=== PATIENT | male | born 1975 | race Caucasian/White ===

== ENCOUNTER 2017-03-13 20:33 | Emergency (ER) | payer BC, OTHER ==
[~2017-03-13] VITALS: Ht 185.4 cm; Wt 97.7 kg
[2017-03-13 20:37] VITALS: BP 160/91; PULSE 109; TEMP 36.8; O2SAT 96; Ht 185.4 cm; Wt 97.7 kg
[2017-03-13] MEDS ORDERED: OXYCODONE HCL IR 5 MG TAB (IMMEDIATE RELEASE) PO STA (20:50)
[2017-03-13] MEDS ORDERED: OXYCODONE IR HOME PACK PO ONE (21:00)
--- NOTE | 2017-03-13 21:10 | DIAGNOSTIC IMAGING REPORT ---
LEFT ANKLE MIN 3 VIEWS ROUTINE CLINICAL HISTORY: L ankle/heel pain - Achilles tendon rupture COMPARISON: None. DISCUSSION: The bones and joint spaces appear intact. There is no evidence of fracture, dislocation or bony disease. Soft tissue posterior to the ankle. Subtalar joint is intact. IMPRESSION: Posterior soft tissue edema. No acute bony abnormality. Electronically signed by: Ishaan Berkowitz M.D. 03/13/2017 9:08 PM Dictated Date/Time: 03/13/2017 9:07 PM
[2017-03-13] MEDS ORDERED: OXYC1TAB3 PO (21:41)
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
[2017-03-16] MEDS ORDERED: OXYC1TAB3 PO (09:50)
[2017-03-17] MEDS ORDERED: ASPEC325 PO (14:28)
== END 2017-03-13 21:47 | disposition home or self-care (01) ==
LOC: C.EDB 20:35 → C.EDD 21:47
DX: S86.012A Strain of left Achilles tendon, initial encounter (principal); X58.XXXA Exposure to other specified factors, initial encounter; Y93.6A Activity, physical games generally associated with school recess, summer camp and children; I10 Essential (primary) hypertension; F17.200 Nicotine dependence, unspecified, uncomplicated; Z87.820 Personal history of traumatic brain injury

== ENCOUNTER → 2017-03-17 | Day surgery (SDC) | payer OTHER ==
[2017-03-16 09:50] VITALS: Ht 185.4 cm; Wt 111.4 kg
[~2017-03-17] VITALS: Ht 185.4 cm; Wt 111.4 kg
[~2017-03-17] MED LIST: ASPEC325 PO; ATROPINE SULFATE 0.1 MG/ML 5ML SYR IV PRN; CEFAZOLIN 2000 MG/60 ML D5W IV SCH; CEFAZOLIN SOD 1 GM VIAL ONE; CEFAZOLIN SOD 1000MG/55 ML D5W IV ONE; DEXAMETHASONE SOD INJ 4 MG/ML VIAL ONE; EpHEDrine SULFATE INJ 50 MG/ML AMP IV PRN; FENTANYL CITRATE INJ 50 MCG/1 ML 2 ML VIAL ONE; HYDROmorphone INJ 2 MG/ML SYR/VIAL IV PRN; LACTATED RINGER'S 1000ML 1,000 ML IV SCH; LIDOCAINE HCL 1% MPF 2 ML VIAL ONE; LIDOCAINE HCL 2% 2 ML VIAL (20MG/ML) ONE; MIDAZOLAM HCL 1 MG/ML 2ML VIAL ONE; ONDANSETRON INJ 2 MG/ML 2 ML VIAL IV PRN; ONDANSETRON INJ 2 MG/ML 2 ML VIAL ONE; OXYC1TAB3 PO; OXYCODONE/ACETAMINOPHEN 5-325 TAB PO PRN; PHENYLEPHRINE 100MCG/ML 5ML SYR IV PRN; PROPOFOL IV EMULSION 10 MG/ML 20 ML VIAL IV ONE; ROPIVACAINE 0.5% 5 MG/ML 30 ML VIAL ONE; ROPIVACAINE/NSS 0.2% 250 ML PUMP INFIL PRN; SODIUM CHLORIDE 0.9% 1000ML 1,000 ML IV PRN; SODIUM CHLORIDE 0.9% 1000ML 1,000 ML IV SCH
--- NOTE | 2017-03-17 12:01 | History & Physical Bridge - SC ---
H&P Re-Evaluation Bridge Note: I have examined the patient, reviewed the History & Physical and in the interval since the performance of the History & Physical I have noted the following changes of clinical significance: No changes noted
[2017-03-17] MEDS: BUPIVACAINE/EPINEPHRINE 0.5% MPF 1:200,000 30 ML VIAL ONE ×2 (13:58→14:01)
--- NOTE | 2017-03-17 14:30 | Discharge Instructions-SurgCtr ---
Discharge Instructions Date of Service March 17, 2017. Visit Reason for Visit: Left Achilles Teondon Rupture Discharge Discharge Diagnosis / Problem: left achilles tendon rupture Discharge Goals Goal(s): Improve function, Therapeutic intervention Activity Recommendations Activity Limitations: per Instructions/Follow-up section Weightbearing Status: Left non-weightbearing Anesthesia . Post Anesthesia Instructions: If you have had General Anesthesia or IV Sedation: * Do not drive today. * Resume driving when surgeon permits. * Do not make important decisions or sign legal documents today. * Call surgeon for: 1. Temperature elevations greater than 101 degrees F. 2. Uncontrollable pain. 3. Excessive bleeding. 4. Persistent nausea and vomiting. 5. Medication intolerance (nausea, vomiting or rash). * For nausea and vomiting use only clear liquids such as: tea, soda, bouillon until nausea subsides, then gradually increase diet as tolerated. * If you have any concerns or questions, call your surgeon's office. If physician is unavailable and it is an emergency, call 911 or go to the nearest emergency room. . Instructions / Follow-Up Instructions / Follow-Up MEDICATIONS: * Resume previous medications unless instructed otherwise by your surgeon. * Always take pain medication on a full stomach or with food to avoid upset stomach. * Do not drink alcohol or drive while taking narcotics. * Ibuprofen or Tylenol may be taken if narcotic not needed. SPECIAL CARE INSTRUCTIONS: __ None _x_ Keep extremity elevated as much as possible _x_ Crutches __ May discard when able __ Brace/Post-op shoe __ 24 hrs/day __ Remove at night _x_ Dressing _x_ Maintain until seen in office, may shower with plastic over site __ Remove dressings in 24-48 hours and then may shower __ Cover incisions with band-aids after showering __ Do not remove steri-strips Call physician if chills or temperature rises above 102 degrees or pain unrelieved by prescribed pain medications. Office [phone] follow up in 2 weeks Diet Recommendations Home Diet: resume previous diet Procedures Procedures Performed: Left Achilles Tendon Repair Pending Studies Studies pending at discharge: no Medical Emergencies . Who to Call and When: Medical Emergencies: If at any time you feel your situation is an emergency, please call 911 immediately. . Non-Emergent Contact Non-Emergency issues call your: Surgeon . . "Provider Documentation" section prepared by Ty Denson. .
--- NOTE | 2017-03-17 14:31 | [facility] Post Operative Brief Note ---
Immediate Operative Summary Operative Date March 17, 2017. Pre-Operative Diagnosis Left Achilles Tendon Rupture Post-Operative Diagnosis same Procedure(s) Performed Left Achilles Tendon Repair Surgeon Dr. Bianca Palafox Mercury Recoverer Surgeon(s) Mark Denson PA-C Estimated Blood Loss 5cc Findings Left Achilles Tendon Rupture Specimens none Anesthesia General Complication(s) None Disposition Recovery Room / PACU
--- NOTE | 2017-03-17 15:23 | OPERATIVE REPORT ---
DATE OF OPERATION: 03/17/2017 SURGEON: Ramez Palafox MD FENCE ERECTOR SUPERVISOR: EFRAÍN Gamboa PREOPERATIVE DIAGNOSIS: Left Achilles tendon rupture. POSTOPERATIVE DIAGNOSIS: Same. PROCEDURE PERFORMED: Left Achilles tendon repair. COMPLICATIONS: None. ESTIMATED BLOOD LOSS: 5 mL. TOURNIQUET TIME: 24 minutes at 300 mmHg. ANESTHESIA: General. SPECIMENS: None. 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 He was playing kickball and got out from a crouched position and took off and felt a pop in his leg. He was seen in the Emergency Room as well as clinic and diagnosed with Achilles tendon rupture. He elected to proceed with surgical treatment. OPERATIVE PROCEDURE: The patient was taken to the operating room, identified and placed on the operating table in the supine position. All contact areas were appropriately padded. IV antibiotics were provided by the anesthesia team. A general anesthetic was implemented by anesthesia team. The patient was then placed prone on the operating room table. A left thigh tourniquet was then placed. The left foot and ankle were then prepped and draped in the usual sterile fashion. Left leg was elevated and exsanguinated with Esmarch and tourniquet was placed at 300 mmHg. A medial approach to the Achilles tendon was then performed using a longitudinal incision over the medial border of the patellar tendon. Sharp dissection was carried out through the subcutaneous tissue down to the level of the paratenon/fascia. I then incised the paratenon. The rupture was easily visualized. We very carefully elevated the flaps to identify the tendon. I then trimmed up some of the loose edges. I then placed a #5 Ti-Cron suture in the proximal portion of the tendon using a modified Fred fashion. We placed a similar stitch in the distal tendon as well. We then tied the suture with the foot in slight plantar flexion at about 30 degrees. This provided excellent approximation of the tendon. The wound was then irrigated extensively. I did inject locally with 20 mL of 0.5% Marcaine with epinephrine. The paratenon was then closed with 2-0 Vicryl suture in a [id number] fashion. The tourniquet was then let down for a tourniquet time of 24 minutes. Hemostasis was assured with use of electrocautery. The wound was once again irrigated. Subcutaneous tissues were then closed with 3-0 Vicryl suture in a buried interrupted fashion. Skin was closed with 3-0 nylon suture in a simple fashion. The leg was then cleaned and dried and a sterile dressing of Xeroform, 4 x 4's, sterile cast padding and a stirrup splint with the foot in 30 degrees of plantar flexion were applied. The patient was then placed back in the supine position. He was brought out of general anesthesia and transferred to the recovery room in stable condition. The patient tolerated the procedure well with no complications. All needle and sponge counts were correct at the end of the operation. I attest to the content of the Intraoperative Record and any orders documented therein. Any exceptio ns are noted below.
[2017-03-17 15:46] VITALS: BP 130/81; PULSE 77; TEMP 36.4; O2SAT 99
--- NOTE | 2017-03-17 15:53 | Anesthesia Progress Nt - [facility] ---
Anesthesia Post Op Note Date & Time March 17, 2017 at 15:53 Vital Signs Pain Intensity: 0 Vital Signs Past 12 Hours Date Time Temp Pulse Resp B/P Pulse Ox O2 Delivery O2 Flow Rate FiO2 03/17/17 15:46 36.4 77 16 130/81 99 Room Air 03/17/17 15:26 36.2 83 16 131/88 99 Room Air 03/17/17 15:11 84 10 133/97 99 03/17/17 15:11 85 10 03/17/17 15:10 36.7 103 16 122/96 97 03/17/17 15:06 90 5 03/17/17 15:06 88 5 142/95 98 03/17/17 15:01 92 11 128/93 96 03/17/17 15:01 93 11 03/17/17 14:57 138/89 03/17/17 14:56 94 12 03/17/17 14:56 95 12 153/113 98 03/17/17 14:51 94 12 157/104 99 03/17/17 14:51 94 12 03/17/17 14:46 97 12 03/17/17 14:46 98 12 155/69 99 03/17/17 14:41 97 10 03/17/17 14:41 98 10 139/89 97 03/17/17 14:36 98 18 03/17/17 14:36 98 18 138/87 99 03/17/17 14:35 122/96 03/17/17 14:33 36.7 103 16 122/96 97 Mask 03/17/17 13:21 0 03/17/17 13:20 0 03/17/17 13:16 116/70 03/17/17 13:15 86 03/17/17 13:15 85 18 98 03/17/17 13:11 111/75 03/17/17 13:10 88 03/17/17 13:10 90 21 99 03/17/17 13:06 92/65 03/17/17 13:05 81 03/17/17 13:05 79 10 134/94 100 03/17/17 13:03 146/98 03/17/17 13:00 71 0 97 03/17/17 13:00 71 03/17/17 12:55 81 0 98 03/17/17 12:55 81 03/17/17 12:50 79 03/17/17 12:50 79 0 96 03/17/17 12:45 80 03/17/17 12:45 80 0 96 03/17/17 12:40 79 0 95 03/17/17 12:40 80 03/17/17 12:35 85 03/17/17 12:35 85 0 97 03/17/17 12:03 36.6 94 16 137/92 96 Room Air Notes Mental Status: alert / awake / arousable, participated in evaluation Pt Amnestic to Procedure: Yes Nausea / Vomiting: adequately controlled Pain: adequately controlled Airway Patency, RR, SpO2: stable & adequate BP & HR: stable & adequate Hydration State: stable & adequate Anesthetic Complications: no major complications apparent
== END | disposition home or self-care (01) ==
LOC: X.SURG 11:54
PROVIDERS: ATTEND Orthopaedic Surgery Sports Medicine
DX: S86.012A Strain of left Achilles tendon, initial encounter (principal); X58.XXXA Exposure to other specified factors, initial encounter; Y93.6A Activity, physical games generally associated with school recess, summer camp and children

== ENCOUNTER → 2017-04-16 | Outpatient (CLI) | payer OTHER ==
[~2017-04-16] MED LIST changes: -ATROPINE SULFATE 0.1 MG/ML 5ML SYR IV PRN; -CEFAZOLIN 2000 MG/60 ML D5W IV SCH; -CEFAZOLIN SOD 1 GM VIAL ONE; -CEFAZOLIN SOD 1000MG/55 ML D5W IV ONE; -DEXAMETHASONE SOD INJ 4 MG/ML VIAL ONE; -EpHEDrine SULFATE INJ 50 MG/ML AMP IV PRN; -FENTANYL CITRATE INJ 50 MCG/1 ML 2 ML VIAL ONE; -HYDROmorphone INJ 2 MG/ML SYR/VIAL IV PRN; -LACTATED RINGER'S 1000ML 1,000 ML IV SCH; -LIDOCAINE HCL 1% MPF 2 ML VIAL ONE; -LIDOCAINE HCL 2% 2 ML VIAL (20MG/ML) ONE; -MIDAZOLAM HCL 1 MG/ML 2ML VIAL ONE; -ONDANSETRON INJ 2 MG/ML 2 ML VIAL IV PRN; -ONDANSETRON INJ 2 MG/ML 2 ML VIAL ONE; -OXYCODONE/ACETAMINOPHEN 5-325 TAB PO PRN; -PHENYLEPHRINE 100MCG/ML 5ML SYR IV PRN; -PROPOFOL IV EMULSION 10 MG/ML 20 ML VIAL IV ONE; -ROPIVACAINE 0.5% 5 MG/ML 30 ML VIAL ONE; -ROPIVACAINE/NSS 0.2% 250 ML PUMP INFIL PRN; -SODIUM CHLORIDE 0.9% 1000ML 1,000 ML IV PRN; -SODIUM CHLORIDE 0.9% 1000ML 1,000 ML IV SCH
[2017-04-16 11:01] LABS: BASO % 0.3 %; BASO ABS # 0.03 K/uL (0-0.2); COMPLETE YES; EOS % 2.9 %; HEMATOCRIT 43.6 % (42-52); IG% 0.3 %; LYMPH % 12.8 %; MEAN CELL VOLUME 88.4 fL (80-100); MEAN CORPUSCULAR HGB CONC 33.9 g/dl (32-36); MEAN PLATELET VOLUME 10.3 fL (7.4-10.4); NEUT % 76.7 %; PLATELET COUNT 439 K/uL (130-400); RED BLOOD COUNT 4.93 M/uL (4.7-6.1); WHITE BLOOD COUNT 10.93 K/uL (4.8-10.8)
[2017-04-16 11:19] LABS: CALCIUM 9.7 mg/dl (8.5-10.1)
[2017-04-16 11:23] LABS: ALT/SGPT 25 U/L (12-78); AST/SGOT 11 U/L (15-37); BLOOD UREA NITROGEN 16 mg/dl (7-18); BUN/CREATININE RATIO 15.9 (10-20); CARBON DIOXIDE 29 mmol/L (21-32); CHLORIDE 105 mmol/L (98-107); GLUCOSE 102 mg/dl (70-99); POTASSIUM 4.1 mmol/L (3.5-5.1); SODIUM 140 mmol/L (136-145)
[2017-04-16 11:26] LABS: ALKALINE PHOSPHATASE 71 U/L (45-117); CHOLESTEROL 166 mg/dl (0-200); CHOLESTEROL/HDL RATIO 4.5; HDL CHOLESTEROL 37 mg/dl; LDL CHOLESTEROL CALCULATED 103 mg/dl; TRIGLYCERIDES 128 mg/dl (0-150); VERY LOW DENSITY LIPOPROT CALC 26 mg/dl
[2017-04-16 12:32] LABS: LYME DISEASE AB IGG NEG (NEG); LYME DISEASE AB IGM NEG (NEG)
== END ==
LOC: C.LABBC 08:18
PROVIDERS: ATTEND Nurse Practitioner
DX: E66.9 Obesity, unspecified (principal); Z13.220 Encounter for screening for lipoid disorders

== ENCOUNTER → 2017-05-25 | Outpatient (CLI) | payer OTHER ==
[2017-05-25 10:57] LABS: BASO % 0.6 %; BASO ABS # 0.03 K/uL (0-0.2); COMPLETE YES; HEMATOCRIT 43.3 % (42-52); IG% 0.6 %; LYMPH ABS # 1.14 K/uL (1.2-3.4); MEAN CELL VOLUME 88.4 fL (80-100); MEAN CORPUSCULAR HEMOGLOBIN 29.2 pg (25-34); MEAN PLATELET VOLUME 10.1 fL (7.4-10.4); MONO % 9.4 %; NEUT % 59.4 %; PLATELET COUNT 260 K/uL (130-400); WHITE BLOOD COUNT 5.42 K/uL (4.8-10.8)
== END | disposition home or self-care (01) ==
LOC: C.LABBC 08:10
PROVIDERS: ATTEND Nurse Practitioner Adult Health
DX: D72.829 Elevated white blood cell count, unspecified (principal); R17 Unspecified jaundice

== ENCOUNTER 2023-06-01 05:58 | Inpatient (IN) ==
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
[2023-06-01] MEDS ORDERED: LR 60ML/HR IV SCH (06:00)
[2023-06-01] MEDS ORDERED: ceFAZolin 2000MG 2,000 MG/15 ML SYR IV SCH (06:00)
[2023-06-01] MEDS ORDERED: CeleBREX 200 MG CAP PO SCH (06:00)
[2023-06-01] MEDS ORDERED: ACETAMINOPHEN 500 MG TAB PO SCH (06:00)
[2023-06-01] MEDS ORDERED: GABAPENTIN 900 MG DOSE PO SCH (06:00)
[2023-06-01] MEDS ORDERED: MIDAZOLAM HCL 1 MG/ML 2ML VIAL ONE (07:02)
[2023-06-01] MEDS ORDERED: LIDOCAINE 2% 2 ML VIAL/AMP(20MG/ML) INFIL ONE (07:02)
[2023-06-01] MEDS ORDERED: fentaNYL citrate PF 100 MCG/2 ML VIAL ONE (07:02)
[2023-06-01] MEDS ORDERED: ROCURONIUM BROMIDE 10 MG/ML 5 ML VIAL IV ONE ×2 (07:02→10:02)
[2023-06-01] MEDS ORDERED: PROPOFOL IV EMULSION 10 MG/ML 20 ML VIAL IV ONE (07:02)
[2023-06-01] MEDS ORDERED: HYDROmorphone INJ 2 MG/ML SYR/VIAL IV PRN (07:17)
[2023-06-01] MEDS ORDERED: ePHEDrine sulfate 50 MG/ML AMP IV PRN (07:17)
[2023-06-01] MEDS ORDERED: ONDANSETRON INJ 2 MG/ML 2 ML VIAL IV PRN ×2 (07:17→11:16)
[2023-06-01] MEDS ORDERED: ATROPINE SULFATE 0.1 MG/ML 10ML SYR IV PRN (07:17)
--- NOTE | 2023-06-01 07:43 | History & Physical Bridge Note ---
Date of Service June 01, 2023 History & Physical Bridge Note I have examined the patient, reviewed the History & Physical and in the interval since the performance of the History & Physical I have noted the following changes of clinical significance: no changes noted
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
[2023-06-01] MEDS ORDERED: ceFAZolin 330 MG/ML 1 GM VIAL ONE (07:53)
[2023-06-01] MEDS ORDERED: BUPIVACAINE/EPINEPHRINE 0.25% 1:200,000 30 ML VIAL ONE (07:53)
[2023-06-01] MEDS ORDERED: FLOSEAL HEMOSTATIC MATRIX 10ML TOP ONE (08:36)
[2023-06-01] MEDS ORDERED: SUGAMMADEX SODIUM 200 MG/2 ML VIAL IV ONE (09:21)
--- NOTE | 2023-06-01 09:31 | Operative Report ---
Post Operative Report Pre & Post Diagnosis Operation Date: 06/01/23 07:15 Pre-Op Diagnosis: Intervertebral Disc Disorders with Radiculopathy Post-Op Diagnosis: Intervertebral Disc Disorders with Radiculopathy I identified the patient and participated in the time-out.: Yes Procedure Operation Date: 06/01/23 07:15 Actual Procedures #1 lumbar decompression bilaterally facetectomies and foraminotomies L3-L4 L4-5. #2 posterior spinal fusion L4-5. #3 placed posterior instrumentation L4-5 per #4 interbody fusion L4-5. #5 placement Spira 15 x 26 mm cages x 2 at L4-L5. #6 placement locally harvested morselized autograft and posterior gutters. #7 placement of I factor combined with V toss in the interbody space and posterior lateral gutters. Surgeon Corbin Young, Parcel Post Clerk Melissa Rivera Estimated Blood Loss 50 Findings Consistent with Post-Op Diagnosis Specimens None Indications This is a 47-year-old male with severe radiculopathy and motor deficit is here for urgent surgery. Description of Procedure Patient was met with identified informed consent obtained. Patient was then taken to the operative suite underwent patient placed in a prone position the [facility] top Don frame. All bony promises well-padded eyes inspected to ensure no external pressure placed upon the. This point the lumbar spine was prepped and draped in a sterile fashion. Sharp dissection with the assistance of Bovie cautery to form down to and exposing the lamina and transverse pro cesses of L4-L5. From caudal to cephalad fashion complete laminectomy of L4 partial laminectomy L3 was performed including bilateral medial facetectomies and foraminotomies addressing all spinal stenosis as well as addressing the massive disc herniation that migrated to the dorsal aspect of the canal creating severe compression. After complete decompression pedicle screws were placed in L4-L5 bilaterally with assistance of fluoroscopy in the process rola placed. Bilateral transforaminal approach on the right discectomy was performed endplates curetted to subcortical bleeding bone and a 15 x 26 mm Spira cage with I factor tapped position. Then proceeded to the left transforaminal space remaining of the disc removed and a second 15 x 26 mm Spira cage with I factor tapped in position. The rods were then locked in position bilaterally. The transverse processes of L for L5 burred to subcortically bone. I factor amount of the test and locally harvested morselized graft was placed in the posterior gutters. 15 round RISHI inserted. The incision was then closed with 1 Vicryl to fascia 2-0 Vicryl subcutaneously and 4 Monocryl for final skin closure. Steri- Strips sterile dressing placed. Patient awakened taken to PACU in stable condition. Please note spinal cord monitoring was utilized at the procedure no changes noted. Lastly Melissa Rivera was present at the entire surgery and while the patient positioning complex portion of the surgery and final skin closure. I attest to the content of the Intraoperative Record and any orders documented therein. Any exceptions are noted below.
--- NOTE | 2023-06-01 09:51 | Fluoroscopy Report ---
FL lumbar spine 2-3V CLINICAL HISTORY: L4-5 DFI COMPARISON STUDY: None. FLUOROSCOPY TIME: 17 seconds FLUOROSCOPY IMAGES: 2 Ka,r: 14.7 mGy FINDINGS: Posterior decompression fusion at L4-5 with pedicle screws and rods. Hardware appears intac t. Disc spacers are in place. IMPRESSION: Fluoroscopic assistance as above. ACT 112: Negative or not required by law. Electronically signed by: Jimmy Lima M.D. 06/01/2023 9:49 AM
[2023-06-01] MEDS ORDERED: ONDANSETRON INJ 2 MG/ML 2 ML VIAL ONE (10:02)
[2023-06-01] MEDS: fentaNYL citrate PF 100 MCG/2 ML VIAL IV PRN ×2 (10:07→10:13)
--- NOTE | 2023-06-01 10:53 | Anesthesiology Progress Note ---
Date of Service June 01, 2023 Anesthesia Post Procedure Vital Signs Vital Signs: Temp Pulse Pulse Resp BP Pulse Ox O2 Del Method 06/01/23 10:45 36.4 C L 78 16 159/94 H 96 Nasal Cannula 06/01/23 10:35 77 16 170/106 H 96 Nasal Cannula 06/01/23 10:25 36.0 C L 84 16 173/92 H 97 Nasal Cannula 06/01/23 10:15 81 18 156/91 H 97 Oxymask 06/01/23 10:05 86 18 154/98 H 98 Oxymask 06/01/23 09:55 88 18 160/96 H 98 Oxymask 06/01/23 09:45 36.2 C L 93 H 20 159/105 H 98 Oxymask 06/01/23 06:37 36.5 C 90 18 159/99 H 97 Room Air O2 Flow Rate 06/01/23 10:45 2 06/01/23 10:35 2 06/01/23 10:25 2 06/01/23 10:15 4 06/01/23 10:05 6 06/01/23 09:55 6 06/01/23 09:45 6 06/01/23 06:37 Pain Intensity Back: Pain Intensity: 3 Transfer of Care Handoff Completed per policy Notes Mental Status: alert / awake / arousable and participated in evaluation Patient Amnestic to Procedure: Yes Nausea / Vomiting: adequately controlled Pain: adequately controlled Airway Patency, RR, SpO2: stable & adequate BP & HR: stable & adequate Hydration State: stable & adequate Anesthetic Complications: no major complications apparent and Pt Satisfied with anesthetic care
[2023-06-01] MEDS ORDERED: diphenhydrAMINE Capsule 25 MG CAP PO PRN (11:16)
[2023-06-01] MEDS ORDERED: traMADol HCL 50 MG TABLET PO PRN (11:16)
[2023-06-01] MEDS ORDERED: DO NOT ADMINISTER FLU VACCINE PRN (11:16)
[2023-06-01] MEDS ORDERED: NALOXONE HCL 0.4 MG/1 ML VIAL/CARP IV PRN (11:16)
[2023-06-01] MEDS ORDERED: FAMOTIDINE 20 MG TAB PO PRN (11:16)
[2023-06-01] MEDS ORDERED: ACETAMINOPHEN 500 MG TAB PO PRN (11:16)
[2023-06-01] MEDS ORDERED: MAGNESIUM HYDROXIDE SUSP 30 ML UDC PO PRN (11:16)
[2023-06-01] MEDS ORDERED: oxyCODONE HCL IR 5 MG TAB (IMMEDIATE RELEASE) PO PRN (11:16)
[2023-06-01] MEDS ORDERED: HYDROmorphone INJ 0.5 MG/0.5 ML SYR IV PRN (11:16)
[2023-06-01] MEDS ORDERED: ACETAMINOPHEN 1,000 MG/100 ML VIAL IV PRN (11:16)
[2023-06-01] MEDS ORDERED: LORazepam 2 MG/1 ML VIAL IV PRN (11:16)
[2023-06-01] MEDS ORDERED: PROMETHAZINE HCL 12.5 MG in SODIUM CHLORIDE 0.9% 50 ML IV PRN (11:16)
[2023-06-01] MEDS ORDERED: hydrOXYzine HCl 25 MG TAB PO PRN (11:16)
[2023-06-01] MEDS ORDERED: SOD PHOSPHATE/SOD BIPHOSPHATE ENEMA 132 ML BTL PR PRN (11:16)
[2023-06-01] MEDS ORDERED: bisacodyL 10 MG SUPP PR PRN (11:16)
[2023-06-01] MEDS ORDERED: ONDANSETRON 4 MG OD TAB PO PRN (11:16)
[2023-06-01] MEDS ORDERED: HYDROmorphone INJ 1 MG/ML SYRINGE IV PRN (11:16)
[2023-06-01] MEDS ORDERED: ALUMINUM/MAGNESIUM SUSP 30 ML UDC PO PRN (11:16)
[2023-06-01] MEDS ORDERED: METOCLOPRAMIDE HCL INJ 5 MG/ML 2 ML VIAL IV PRN (11:16)
[2023-06-01] MEDS ORDERED: LORazepam 0.5 MG TAB PO PRN (11:16)
[2023-06-01] MEDS ORDERED: DO NOT ADMINISTER PNEUMOCOCCAL VACCINE PRN (11:16)
[2023-06-01] MEDS: LACTATED RINGER'S 1,000 ML IV SCH ×2 (12:00→18:25)
[2023-06-01] MEDS: ceFAZolin 2000MG 2,000 MG/15 ML SYR IV SCH ×2 (16:10→23:52)
[2023-06-01] MEDS: DOCUSATE SODIUM/SENNA 50/8.6MG TAB PO SCH (20:26)
[2023-06-02] MEDS: POLYETHYLENE (MIRALAX) 17 GM PACK PO SCH ×2 (06:08→12:02)
[2023-06-02 07:45] LABS: Basophils # (auto) 0.03 K/uL (0-0.2); Basophils % (auto) 0.2 %; Hematocrit (blood only) 44.7 % (42.0-52.0); Hemoglobin 15.2 g/dl (14.0-18.0); Immature Granulocytes # (auto) 0.14 K/uL (0.01-0.20); Immature Granulocytes % (auto) 0.8 %; Lymphocytes # (auto) 0.81 K/uL (1.2-3.4); Lymphocytes % (auto) 4.4 %; Mean Corpuscular Hemoglobin 30.7 pg (25.0-34.0); Mean Corpuscular Volume 90.3 fL (80.0-100.0); Mean Platelet Volume 10.2 fL (9.4-12.4); Monocytes # (auto) 0.87 K/uL (0.11-0.59); Monocytes % (auto) 4.7 %; Neutrophils # (auto) 16.66 K/uL (1.40-6.50); Neutrophils % (auto) 89.9 %; Platelet Count 304 K/uL (130-400); RDW Coefficient of Variation 12.4 % (11.5-14.5); RDW Standard Deviation 40.9 fL (36.4-46.3); Red Blood Count 4.95 M/uL (4.70-6.10); White Blood Count 18.51 K/ul (4.8-10.8)
[2023-06-02] MEDS: dexAMETHasone 6 MG in SYRINGE 0 ML IV SCH (07:50)
[2023-06-02 07:59] LABS: BUN Creatinine Ratio 15.6 (10-20); Calcium 9.5 mg/dl (8.6-10.3); Creatinine Clr Calc Pharmacy 132.6 ml/min; Est GFR (African American) 118.3 ml/min; Est GFR (Non-African American) 102.1 ml/min
--- NOTE | 2023-06-02 12:18 | Orthopedic Progress Note ---
Date of Service June 02, 2023 Assessment & Plan (1) Lumbar disc herniation with radiculopathy: Plan: This time continue physical therapy monitor RISHI output hopefully discharge over the next few days. Admission and Anticipated Discharge Date Admission Date: June 01, 2023 Subjective Back pain controlled leg pain markedly improved Physical Exam Physical Exam: Patient is up and ambulating. She comfortable. Discussing the testing. Results & Data Vital Signs (Past 12 Hours) Vital Signs Temp Pulse Resp BP Pulse Ox O2 Del Method 06/02/23 11:41 36.6 C 95 H 18 163/109 H 98 Room Air 06/02/23 07:26 36.4 C L 91 H 20 131/90 98 Room Air 06/02/23 02:46 36.7 C 85 16 122/85 98 Room Air
[2023-06-02] MEDS: DOCUSATE SODIUM/SENNA 50/8.6MG TAB PO SCH (20:36)
[2023-06-03] MEDS: dexAMETHasone 6 MG in SYRINGE 0 ML IV SCH (07:54)
[2023-06-03] MEDS ORDERED: KETOROLAC 30 MG/ML VIAL IV ONE (08:31)
--- NOTE | 2023-06-03 08:32 | Discharge Summary ---
Date of Service June 03, 2023 Admission HPI Per Admitting Provider This is a 47-year-old male presents with severe back and leg pain. Of failed course of nonoperative care is here for surgery. Principal Diagnosis Lumbar disc condition with radiculopathy Discharge Data Allergies Allergy/AdvReac Type Severity Reaction Status Date / Time No Known Drug Allergies Allergy Unknown . Verified 05/27/23 13:37 Procedures Performed Operation Date: 06/01/23 07:15 Actual Procedures p L4-L5 Decompression and Fusion, Spinal Cord Monitoring(Not Applicable) - Corbin Young DO Ordered Studies 06/01/23 07:45 [place] lumbar spine 2-3V Routine Hospital Course (1) Lumbar disc herniation with radiculopathy: Patient underwent lumbar decompression fusion trial as well as taken to orthopedic for postoperative. Postop day 1 is up and ambulating. Postop day #2. Back pain well-controlled. RISHI drain decreasing probably. Excellent strength testing. Simply discharged home. Discharge orders instructions found in chart for further review. Total Time Total Time Spent Total Time Spent (In Minutes): 20 minutes Discharge Plan Discharge Items Patient Disposition: Home - Self-Care Reason For Visit: Intervertebral Disc Disorders with Radiculopathy Discharge Diagnosis: Lumbar discrimination with radiculopathy Activity: As commented below Non-emergency contact: Primary Care Provider Call non-emergency contact if: you have any medication questions Follow-up/Referrals: Katie Jacobo MD [Primary Care Provider] - Diet: Regular Addtl Attending Provider Instructions: ACTIVITY RECOMMENDATIONS: SELF CARE INSTRUCTIONS AFTER THORACIC/LUMBAR FUSIONS 1. You may walk to your tolerance. It is good exercise for your legs and back. Expect some back and intermittent leg aches and pains. 2. You may perform "counter-top" level activities (make a sandwich, johana with a project, etc.). 3. No bending or lifting of more than 10 pounds or back twisting of any nature (roll like a log when turning in bed). 4. You may ride in a car for 20-30 minutes at a time. No driving until after your first visit with your doctor. 5. Frequent changes of position and restricting sitting to 30 minutes at a time will help limit the amount of back spasms and stiffness you may experience. 6. You may discontinue the use of ambulatory aids (cane, crutches, etc.) once your strength and confidence allow. 7. You may skeiner the shower and let water strike your incision when you arrive home at least once daily. Do not take a tub bath, sit in a hot tub or go into a swimming pool until after your first recheck in the office. SPECIAL CARE INSTRUCTIONS: VERY IMPORTANT TO READ AND REVIEW A. Your surgical incision has been closed with a cosmetic suture under the skin that will dissolve in about 6 weeks. In 14 days, you can use a pair of clean scissors and cut the suture that is left outside of the skin at the ends of your incision. 1. The small skin tapes can be removed 7 days after surgery if they have not fallen off by that point. 2. You may keep the wound open to air as much as possible to promote healing after post-op day number 5 unless told otherwise by your doctor. 3. If you think the wound looks like it is becoming infected (redness or worsening drainage) and/or you are experiencing fever, chill or worsening back pain and muscle spasms, contact the office so that we may evaluate you as soon as possible. B. Complications are uncommon, but please contact us if you have any signs or symptoms of: 1. wound infection (fever higher than 102.5 degrees F, redness, separation of wound, drainage, or increasing pain from the incision) 2. blood clots in legs (pain, swelling, redness and warmth in legs) 3. urinary tract infection (fever higher than 102.5 degrees F, burning upon urination or increased frequency of urination) 4. nerve problems (inability to walk on your toes or heels, numbness, loss of bowel or bladder control) 5. any other symptoms that concern you C. Please call the office at if you have any concerns or questi ons about your operation or recovery. D. No smoking! Smoking drastically decreases the chance of a solid fusion. E. Do not take any anti-inflammatory medications (Indocin, Advil, Motrin, Aspirin, Naprosyn, etc.) as these may inhibit the chance of a solid fusion. Tylenol is okay to take for pain. MANAGING PAIN AFTER SPINAL SURGERY 1. Narcotic medication is intended for short-term use and will be provided for surgical pain. Surgical pain usually lasts for a period of 4-6 weeks. Narcotic medication includes Percocet, Vicodin, Darvocet, Tylenol #3 or Lortab. 2. Longer-term pain is more appropriately treated with non-narcotic medication such as Tylenol ES. 3. Muscle spasm is not appropriately treated with narcotics. Muscle relaxers such as Soma, Flexeril or Skelaxin can be used along with Tylenol ES. 4. Remember that we all live with some "aches and pains". This is not unusual or uncommon after an injury or as we get older. a. Back pain is expected and may include muscle spasms for 4 to 6 weeks after surgery. The pain should gradually improve. If the pain worsens for no apparent reason, please contact the office. b. Intermittent leg pain may also be experienced and should not be concerned about unless it worsens for no apparent reason. If so, please contact the office. 5. We will provide appropriate medication within the normal guidelines of their prescribed use. We will also be very cautious and aware of potential abuse and extended duration of patients' medication needs. a. Pain medications are for your comfort and to assist with sleep and rest so that the tissue can heal. They are not provided in order to return to normal activity and should not be used through the day. To do so or worsening pain at night can result from ongoing tissue damage and development of tolerance to the prescribed medicine. 6. Please allow 2-3 days to process refills. Prescriptions will not be mailed but must be picked up at the office. FOLLOW UP VISIT: Keep your scheduled follow-up appointment. Any questions, please call the office at . Pending Studies at Discharge: No Stand-Alone Forms: My [facility] Posterous, Smoking Cessation Medications and DC Order Prescriptions: New tramadol 50 mg tablet 50 mg PO Q6H PRN (Reason: pain, moderate) Qty: 30 0RF oxycodone 5 mg tablet 5 mg PO Q6H PRN (Reason: pain) Qty: 30 0RF Discharge Orders: Discharge Order (Routine); Ordered 06/03/23 Ordered By: Corbin Young Admission Data Admit Date/Time: 06/01/23 09:33 Attending Provider: Corbin Young Admit Provider: Corbin Young Primary Care Provider: Katie Jacobo V.
== END 2023-06-03 11:55 | disposition home or self-care (01) | DRG 455 ==
LOC: ASU 05:58 → 3E 09:33